=== PATIENT | female | born 1955 | race Caucasian/White ===

== ENCOUNTER → 2017-05-19 | Emergency (ER) | payer BC ==
[~2017-05-19] MED LIST: ALDACTONE25 MG PO; ARIPIPRAZOLE5 MG PO; CATAPRES0.1 MG PO; COUMADIN ** IA5 MG PO; COUMADIN **IA7.5 MG PO; DELTASONE10 MG PO; DURAGESIC 25MC25 MCG TOP; EFFEXOR XR 3737.5 MG PO; EFFEXOR XR75 MG PO; EFFEXOR75 MG PO; ELAVIL10 MG PO; FEOSOL ELI220 MG/5 M PO; FLEXERIL10 MG PO; K-TAB OR KLOR-10 MEQ PO; MERCAPTOPURINE50 MG PO; NEURONTIN100 MG PO; NEXIUM40 MG PO; NORCO 5-325 MG1 TAB PO; PHENERGAN25 M1 PO; REMICADE100 MG; ROZEREM8 MG PO; VALIUM5 MG PO
== END | disposition disaster alternative care site (69) ==
LOC: GAMB 09:08
DX: S69.90XA Unspecified injury of unspecified wrist, hand and finger(s), initial encounter (principal); S50.12XA Contusion of left forearm, initial encounter; S50.11XA Contusion of right forearm, initial encounter; I10 Essential (primary) hypertension; Z79.899 Other long term (current) drug therapy; V49.9XXA Car occupant (driver) (passenger) injured in unspecified traffic accident, initial encounter